=== PATIENT | female | born 1945 | race Caucasian/White ===

== ENCOUNTER 2017-01-31 23:06 | Emergency (ER) | payer BC ==
[~2017-01-31 23:06] MED LIST: CHOL100010 PO; COEN75CA PO; DIGE1CAP10 PO; FLEC50TA20 PO; METO25TA3 PO; MISCCAP80 PO; MULT-506 PO; OMEG7.5C PO
== END 2017-01-31 23:16 | disposition left against medical advice (07) ==
LOC: C.EDB 23:06

== ENCOUNTER → 2017-04-10 | Outpatient (CLI) | payer BC ==
--- NOTE | 2017-04-10 13:49 | DIAGNOSTIC IMAGING REPORT ---
R PELVIS UNILATERAL HIP 1 VIEW CLINICAL HISTORY: 72 years-old Female presenting with RIGHT HIP PAIN. TECHNIQUE: Single frontal view of the pelvis and frog-leg lateral view of the right hip were obtained. COMPARISON: 09/07/2015. FINDINGS: Total right hip arthroplasty as on prior exam. Minimal lucency along the lateral aspect of the proximal femoral stem measures up to 3 mm and may be within the range of normal. No periprosthetic fracture. No malalignment. Bony pelvis intact. Left hip joints normal. IMPRESSION: Total right hip arthroplasty. Minimal lucency along the lateral aspect of the proximal femoral stem component measures up to 3 mm and may be within the range of normal versus loosening. Electronically signed by: Odell Bhakta M.D. 04/10/2017 1:47 PM Dictated Date/Time: 04/10/2017 1:45 PM
== END | disposition home or self-care (01) ==
LOC: C.RDSM 13:37
PROVIDERS: ATTEND Physician Assistant
DX: M16.10 Unilateral primary osteoarthritis, unspecified hip (principal); Z96.641 Presence of right artificial hip joint

== ENCOUNTER 2019-08-23 20:50 | Inpatient (IN) ==
[2019-08-23] MEDS ORDERED: ONDANSETRON INJ 2 MG/ML 2 ML VIAL IV STA (21:45)
[2019-08-23] MEDS ORDERED: SODIUM CHLORIDE 0.9% 1000ML 1,000 ML IV ONE (21:45)
[2019-08-23 22:16] LABS: Basophils # (auto) 0.01 K/uL (0-0.2); Basophils % (auto) 0.2 %; Hematocrit (blood only) 42.1 % (37-47); Immature Granulocytes # (auto) 0.02 K/uL (0.00-0.02); Immature Granulocytes % (auto) 0.3 %; Lymphocytes # (auto) 0.51 K/uL (1.2-3.4); Lymphocytes % (auto) 7.7 %; Mean Corpuscular Hgb Conc 33.3 g/dL (32-36); Mean Corpuscular Volume 90.3 fL (80-100); Mean Platelet Volume 10.2 fL (7.4-10.4); Monocytes # (auto) 0.49 K/uL (0.11-0.59); Monocytes % (auto) 7.4 %; Neutrophils # (auto) 5.58 K/uL (1.4-6.5); Neutrophils % (auto) 84.4 %; Platelet Count 177 K/uL (130-400); RDW Coefficient of Variation 13.4 % (11.5-14.5); RDW Standard Deviation 44.3 fL (36.4-46.3); Red Blood Count 4.66 M/uL (4.2-5.4); White Blood Count 6.61 K/uL (4.8-10.8)
[2019-08-23 22:44] LABS: Alanine Aminotransferase 32 U/L (12-78); Albumin Globulin Ratio 0.8 (0.9-2); Albumin Level 3.1 gm/dl (3.4-5.0); Alkaline Phosphatase 60 U/L (45-117); Aspartate Aminotransferase 40 U/L (15-37); BUN Creatinine Ratio 9.7 (10-20); Bilirubin,Total 0.5 mg/dl (0.2-1); Blood Urea Nitrogen 8 mg/dl (7-18); Calcium 8.3 mg/dl (8.5-10.1); Carbon Dioxide 22 mmol/L (21-32); Chloride 97 mmol/L (98-107); Creatinine Clr Calc Pharmacy 66.6 ml/min; Est GFR (African American) 79.4; Est GFR (Non-African American) 68.5; Globulin 3.7 gm/dl (2.5-4.0); Glucose 119 mg/dl (70-99); Lipase 77 U/L (73-393); Potassium 3.5 mmol/L (3.5-5.1); Sodium 128 mmol/L (136-145); Total Protein 6.8 gm/dl (6.4-8.2); Troponin I < 0.015 ng/ml (0-0.045)
[2019-08-23] MEDS ORDERED: MoRPHine SULFATE 2 MG/ML CARP IV STA (23:00)
[2019-08-23] MEDS ORDERED: IOVERSOL 100ml IV PRN (23:58)
[2019-08-24 00:31] LABS: Appearance Urine Clear (Clear); Bacteria Urine Automated Negative (Negative); Bilirubin Urine Negative (Negative); Blood Urine 1+ (Negative); Cast Urine Automated 0 /lpf (0-5); Color Urine Yellow; Epithelial Cell Urine Auto 20-30 /lpf (0-5); Glucose Urine UA Negative (Negative); Ketones Urine 2+ (Negative); Leukocyte Esterase Urine 1+ (Negative); Nitrite Urine Negative (Negative); Protein Urine 1+ (Negative); Specific Gravity Urine 1.023 (1.000-1.030); Urobilinogen Urine Negative (Negative)
--- NOTE | 2019-08-24 01:10 | History & Physical Report ---
Date of Service August 24, 2019 Assessment & Plan (1) Syncope: 74 yo otherwise healthy F who suffered a syncopal event at home that led to a fall and clavicular fracture and admitted for management. 1) Syncope - CT head: negative for intracranial bleed, old lacunar infarct present. - CT abd/pelv: normal bowel gas pattern, no indication of colitis, old rib fractures, hip prostheses - secondary to hyponatremia? Na 128 - EKG: left axis deviation with incomplete left bundle branch block? 2) Hyponatremia - hypovolemic hyponatremia - gentle rehydration with NS 3) R Clavicular fracture - XR clavicle/CT chest wo Con: R clavicular fracture, fracture of right 3rd and 4th ribs, no pneumothorax - pain control with tylenol, ibuprofen scheduled, morphine 2 mg Q4 PRN - ortho consult for surgical options of fixation - affected shoulder in sling for immobilization 4) Asymptomatic Bacteriuria - UA + for LE, bacteria, WBC, protein - urine culture reflex pending - borderline elevated BP - if symptoms develop consider treatment for UTI/Urosepsis in setting of fever, source and relative hypotension DVT ppx: heparin SQ BID FEN/GI: NPO Code Status: full code Dispo: med/surg with tele (2) Fall: (3) Hyponatremia: (4) Clavicle fracture: History of Present Illness 74-year-old otherwise healthy female admitted for syncopal episode resulting in a fall. She states she was at home sitting on the couch thinking and talking about watching a movie when she got up to go to the kitchen. She does not remember getting up or falling afterwards and woke up when the rubber goods cutter finisher were already there. She states this type of event has happened before when she gets up too fast from a sitting position. She states that a friend of hers was in the house with her and found her on the ground and called EMS. She denies any presyncopal symptoms or any current weakness, dizziness, chest pain, palpitations. She does attest to having fevers at home up to 99 F as well as sweating during the day and having chills and shivering. She attest to a mild cough that is nonproductive. She states she has not been around any sick contacts however the son of the friend that was in her house got tested for COVID today. She denies any symptoms of dysuria, polyuria. Had ~15 episodes of diarrhea on Friday after eating potato salad at a picnic on Friday but no one else at the [facility] had the same symptoms. Denies bloody or tarry bowel movements. Primary Care Provider: Tawana Gordon DO Allergies Allergy/AdvReac Type Severity Reaction Status Date / Time gluten Allergy Unknown Joint Pain Verified 08/23/19 21:51 topical antibiotics Allergy Unknown rash Uncoded 08/23/19 21:51 Home Medications Home Medications Medication Instructions Recorded Confirmed Type metoprolol succinate 25 mg PO DAILY #0 07/20/07 08/23/19 History [place]-3 Fish Oil 2 cap PO DAILY #0 11/30/12 08/23/19 History coenzyme Q10 200 mg PO DAILY #0 11/30/12 08/23/19 History Probiotic 3,000 mmu cells PO DAILY #0 05/15/15 08/23/19 History cholecalciferol (vitamin D3) 1,000 unit PO DAILY #0 tab 05/15/15 08/23/19 History digestive enzymes 1 tab PO DAILY #0 05/15/15 08/23/19 History flecainide 50 mg PO Q12H #0 tab 05/15/15 08/23/19 History multivitamin 1 tab PO DAILY #0 tab 05/15/15 08/23/19 History Glucosamine Chondroitin 2 cap PO DAILY 08/20/18 08/23/19 History ibuprofen 200 mg PO Q6H PRN 08/23/19 08/23/19 History Past Med/Surg History Medical History GERD (gastroesophageal reflux disease) (Acute) Osteoarthritis (Acute) Sinusitis (Acute) chronic SVT (supraventricular tachycardia) (Acute) Surgical History History of cardiac radiofrequency ablation (Acute) History of herniorrhaphy (Acute) right x2 History of tonsillectomy (Acute) History of total hip arthroplasty (Acute) right Social History Preferred Language: Armenian Communication Ability: Effective District Gauger Required: No Beliefs That Will Affect Care: None Current Living Situation: Alone Feels Safe at Home: Yes Smoking Status: Never smoker Second Hand Exposure: No ; Hx Alcohol Use: Yes Alcohol type: wine Hx Substance Use: No Review of Systems Constitutional: + fever and + chills; no body aches and no fatigue Respiratory: + cough; no dyspnea Cardiovascular: no chest pain, no dyspnea and no edema Gastrointestinal: + diarrhea/loose stools; no abdominal pain, no nausea, no vomiting and no constipation Genitourinary: no dysuria Physical Exam Constitutional: cooperative; no acute distress and not ill appearing Neck: normal visual inspection Respiratory: normal respiratory effort and able to speak in complete sentences; no respiratory distress, no labored breathing, no retractions, no cough and no audible wheezes Auscultation: lungs clear to auscultation bilaterally; no crackles, no rales, no rhonchi and no wheezes Cardiovascular: Rate/Rhythm: regular rate and regular rhythm Heart Sounds: normal S1 and normal S2; no gallop, no murmur and no cardiac rub Vessels: posterior tibial pulses present Extremities: no pedal edema and no edema Gastrointestinal (Abdomen): Inspection/Auscultation: abdomen normal to inspection and normal bowel sounds; abdomen not distended Percussion/Palpation: abdomen soft; abdomen nontender, no guarding, abdomen not rigid and no abdominal mass Results & Data Results & Data ([facility]) Vital Signs (Past 12 Hours) Vital Signs Temp Pulse Pulse Resp BP BP Pulse Ox 08/24/19 00:22 37.9 C H 67 18 105/57 L 94 08/23/19 23:27 70 18 132/72 93 08/23/19 21:03 38 C H 81 15 128/70 95 Laboratory Results WBC 6.61 K/uL (4.8-10.8) 08/23/19 22:05 RBC 4.66 M/uL (4.2-5.4) 08/23/19 22:05 Hgb 14.0 g/dL (12.0-16.0) 08/23/19 22:05 Hct 42.1 % (37-47) 08/23/19 22:05 MCV 90.3 fL (80-100) 08/23/19 22:05 MCH 30.0 pg (25-34) 08/23/19 22:05 MCHC 33.3 g/dL (32-36) 08/23/19 22:05 RDW Std Deviation 44.3 fL (36.4-46.3) 08/23/19 22:05 RDW Coeff of Katarina 13.4 % (11.5-14.5) 08/23/19 22:05 Plt Count 177 K/uL (130-400) 08/23/19 22:05 MPV 10.2 fL (7.4-10.4) 08/23/19 22:05 Immature Gran % (Auto) 0.3 % 08/23/19 22:05 Neut % (Auto) 84.4 % 08/23/19 22:05 Lymph % (Auto) 7.7 % 08/23/19 22:05 [place] % (Auto) 7.4 % 08/23/19 22:05 Eos % (Auto) 0.0 % 08/23/19 22:05 Baso % (Auto) 0.2 % 08/23/19 22:05 Neut # (Auto) 5.58 K/uL (1.4-6.5) 08/23/19 22:05 Lymph # (Auto) 0.51 K/uL (1.2-3.4) L 08/23/19 22:05 [place] # (Auto) 0.49 K/uL (0.11-0.59) 08/23/19 22:05 Eos # (Auto) 0.00 K/uL (0-0.5) 08/23/19 22:05 Baso # (Auto) 0.01 K/uL (0-0.2) 08/23/19 22:05 Immature Gran # (Auto) 0.02 K/uL (0.00-0.02) 08/23/19 22:05 Sodium 128 mmol/L (136-145) L 08/23/19 22:05 Potassium 3.5 mmol/L (3.5-5.1) 08/23/19 22:05 Chloride 97 mmol/L (98-107) L 08/23/19 22:05 Carbon Dioxide 22 mmol/L (21-32) 08/23/19 22:05 Anion Gap 9.0 (3-11) 08/23/19 22:05 BUN 8 mg/dl (7-18) 08/23/19 22:05 Creatinine 0.83 mg/dl (0.6-1.2) 08/23/19 22:05 Est Cr Clr Drug Dosing 66.6 ml/min 08/23/19 22:05 Est GFR ( Amer) 79.4 08/23/19 22:05 Est GFR (Non-Af Amer) 68.5 08/23/19 22:05 BUN/Creatinine Ratio 9.7 (10-20) L 08/23/19 22:05 Glucose 119 mg/dl (70-99) H 08/23/19 22:05 Calcium 8.3 mg/dl (8.5-10.1) L 08/23/19 22:05 Total Bilirubin 0.5 mg/dl (0.2-1) 08/23/19 22:05 AST 40 U/L (15-37) H 08/23/19 22:05 ALT 32 U/L (12-78) 08/23/19 22:05 Alkaline Phosphatase 60 U/L (45-117) 08/23/19 22:05 Troponin I < 0.015 ng/ml (0-0.045) 08/23/19 22:05 Total Protein 6.8 gm/dl (6.4-8.2) 08/23/19 22:05 Albumin 3.1 gm/dl (3.4-5.0) L 08/23/19 22:05 Globulin 3.7 gm/dl (2.5-4.0) 08/23/19 22:05 Albumin/Globulin Ratio 0.8 (0.9-2) L 08/23/19 22:05 Lipase 77 U/L (73-393) 08/23/19 22:05 Specimen Hemolysis 08/23/19 22:05 Urine Color Yellow 08/24/19 00:15 Urine Appearance Clear (Clear) 08/24/19 00:15 Urine pH 6.0 (4.5-7.5) 08/24/19 00:15 Ur Specific [place] 1.023 (1.000-1.030) 08/24/19 00:15 Urine Protein 1+ (Negative) H 08/24/19 00:15 Urine Glucose (UA) Negative (Negative) 08/24/19 00:15 Urine Ketones 2+ (Negative) H 08/24/19 00:15 Urine Blood 1+ (Negative) H 08/24/19 00:15 Urine Nitrite Negative (Negative) 08/24/19 00:15 Urine Bilirubin Negative (Negative) 08/24/19 00:15 Urine Urobilinogen Negative (Negative) 08/24/19 00:15 Ur Leukocyte Esterase 1+ (Negative) H 08/24/19 00:15 Urine WBC (Auto) 10-30 /hpf (0-5) H 08/24/19 00:15 Urine RBC (Auto) 5-10 /hpf (0-4) H 08/24/19 00:15 U Hyaline Cast (Auto) 0 /lpf (0-5) 08/24/19 00:15 U Epithel Cells (Auto) 20-30 /lpf (0-5) H 08/24/19 00:15 Urine Bacteria (Auto) Negative (Negative) 08/24/19 00:15 Supervising Physician Co-Signing Physician Notes Attending addendum: I have physically seen this patient, have supervised the medical residents activities, and agree with the H&P unless as otherwise noted. Assessment and Plan: Syncope- The patient will be admitted to telemetry for serial cardiac enzymes, serial EKG's, cardiac rhythm monitoring and a 2-D echocardiogram with Dopplers. CT head negative for intracranial bleed, old lacunar infarct left basal ganglia Differential including deconditioning, hyponatremia with hypovolemia, UTI. Right clavicular fracture/fracture of right third and fourth ribs- Consult orthopedics Shoulder immobilizer Pain control with acetaminophen 600 mg p.o. every 6 hours as needed outpatient temperature. Morphine 2 mg IV every 4 hours as needed severe pain Hypovolemic hyponatremia- Rehydration with NSS. Repeat laboratories in a.m. Remainder of orders and notations as noted. Resident Activity Tracking Resident Involvement: Resident Care Provided Care Provided: Adult [facility]
[2019-08-24] MEDS ORDERED: IBUPROFEN 200 MG TAB PO PRN (04:29)
[2019-08-24] MEDS ORDERED: MoRPHine SULFATE 2 MG/ML CARP IV PRN (04:29)
[2019-08-24] MEDS ORDERED: MAGNESIUM HYDROXIDE SUSP 30 ML UDC PO PRN (04:29)
[2019-08-24] MEDS ORDERED: ALUMINUM/MAGNESIUM SUSP 30 ML UDC PO PRN (04:29)
[2019-08-24] MEDS ORDERED: SODIUM CHLORIDE 0.9% 1000ML 1,000 ML IV SCH (04:29)
[2019-08-24] MEDS ORDERED: POLYETHYLENE (MIRALAX) 17 GM PACK PO PRN (04:29)
--- NOTE | 2019-08-24 06:59 | CT Scan Report ---
CT OF THE CHEST WITHOUT IV CONTRAST CLINICAL HISTORY: pneumothorax, clavicle fracture COMPARISON STUDY: Chest radiograph August 23, 2019 at 9:[address] DOSE: 340.88 mGy.cm TECHNIQUE: Axial images of the chest were obtained without IV contrast. Images were reviewed in the axial, sagittal, and coronal planes. IV contrast was not administered for this examination. Automat ed exposure control was utilized for the study. A dose lowering technique was utilized adhering to t he principles of ALARA. FINDINGS: No mediastinal hematoma is noted. There is no pericardial effusion. No pneumothorax or ple ural effusion is noted. Subpleural opacities reflect atelectasis. Central airways are patent. No acut e thoracic spine fracture is noted. There are several Schmorl's nodes within the thoracic spine. Ther e is no thoracic lymphadenopathy. Note is made of an acute comminuted mildly displaced midshaft fract ure of the right clavicle. There are are angulated nondisplaced fractures of the anterior right third and fourth ribs which are likely acute. There are multiple old left rib fractures. IMPRESSION: 1. Acute comminuted moderately displaced right clavicular fracture. 2. Angulated nondisplaced anterior right third and fourth rib fractures, likely acute. No pneumothora x. 3. No mediastinal hematoma. ACT 112: Negative or not required by law. Electronically signed by: Joel Hernandez M.D. 08/24/2019 6:58 AM
--- NOTE | 2019-08-24 07:07 | CT Scan Report ---
CT head/brain wo con CT DOSE: 614.27 mGy.cm HISTORY: Mental status change syncope TECHNIQUE: Multiaxial CT images of the head were performed without the use of intravenous contrast. A dose lowering technique was utilized adhering to the principles of ALARA. Comparison: None. Findings: The paranasal sinuses and mastoid air cells are clear. The calvarium and skull base are int act. The ventricles and sulci are within normal limits. There is no mass, hematoma, midline shift, or acute infarct. Impression: No acute intracranial abnormality. Age-related change. ACT 112: Negative or not required by law. The above report was generated using voice recognition software. It may contain grammatical, syntax or spelling errors. Electronically signed by: Kev Diggs M.D. 08/24/2019 7:05 AM
--- NOTE | 2019-08-24 07:21 | CT Scan Report ---
CT OF THE ABDOMEN AND PELVIS WITH CONTRAST CLINICAL HISTORY: gi sxs, fever, syncope COMPARISON STUDY: None. TECHNIQUE: Following IV administration of 90 mL of Optiray-320, axial images of the abdomen and pelvi s were obtained from the lung bases to the proximal femurs. Images were reviewed in the axial, sagitt al, and coronal planes. IV contrast was administered without complication. Automated exposure contro l was utilized for the study. A dose lowering technique was utilized adhering to the principles of A WONG. CT DOSE: 824.03 mGy.cm FINDINGS: No pneumatosis, free air or portal venous gas is present. A subcentimeter lateral segment h epatic cyst is noted. There is no biliary or pancreatic ductal dilatation. No peripancreatic or peric holecystic infiltration is present. There is no hydronephrosis. The spleen, adrenal glands, kidneys a nd pancreas are unremarkable. There is no evidence for a bowel obstruction. Colonic wall thickening i s likely due to underdistention. The appendix is normal. There is no lymphadenopathy. There is no asc ites. Right hip arthroplasty is noted. Old bilateral lower rib fractures are noted. IMPRESSION: 1. No acute findings within the abdomen or pelvis. 2. Normal appendix. No bowel obstruction. Mild colonic wall thickening which is likely due to underdi stention. ACT 112: Negative or not required by law. Electronically signed by: Joel Hernandez M.D. 08/24/2019 7:19 AM
--- NOTE | 2019-08-24 07:21 | XRay Report ---
XR clavicle 2 view RT CLINICAL HISTORY: fall, right clavicle pain trauma. Pain. COMPARISON: None. DISCUSSION: Displaced comminuted fracture midshaft right clavicle. Moderate degenerative change right acromioclavicular joint. No evidence for dislocation. There is no evidence for soft tissue swelling. IMPRESSION: Displaced fracture midshaft right clavicle. ACT 112: Negative or not required by law. The above report was generated using voice recognition software. It may contain grammatical, syntax or spelling errors. Electronically signed by: Kev Diggs M.D. 08/24/2019 7:20 AM
--- NOTE | 2019-08-24 07:29 | XRay Report ---
XR chest 1V portable CLINICAL HISTORY: syncope dyspnea COMPARISON STUDY: 11/30/2012 FINDINGS: The bones soft tissues and hemidiaphragms are normal. The cardiomediastinal silhouette is n ormal. The lungs are clear. The pulmonary vasculature is normal. IMPRESSION: Negative chest. ACT 112: Negative or not required by law. The above report was generated using voice recognition software. It may contain grammatical, syntax or spelling errors. Electronically signed by: Kev Diggs M.D. 08/24/2019 7:28 AM
--- NOTE | 2019-08-24 08:25 | Electrocardiogram Report ---
Test Reason : Blood Pressure : / mmHG Vent. Rate : 072 BPM Atrial Rate : 072 BPM P-R Int : 182 ms QRS Dur : 114 ms QT Int : 452 ms P-R-T Axes : 061 -31 051 degrees QTc Int : 494 ms Poor data quality, interpretation may be adversely affected Normal sinus rhythm Left axis deviation Incomplete left bundle block Nonspecific ST and T wave abnormality Abnormal ECG When compared with ECG of 11-DEC-2014 05:45, Incomplete left bundle block is now Present T wave inversion now evident in Anterior leads Confirmed by Jourdan Emmanuel ([id number]) on 08/24/2019 8:25:12 AM Referred By: REFERRED SELF Confirmed By:Jourdan Emmanuel
[2019-08-24] MEDS: ACETAMINOPHEN 325 MG TAB PO SCH ×5 (08:51→21:25)
[2019-08-24] MEDS: FLECAINIDE ACETATE 100 MG TABLET PO SCH ×2 (09:00→21:24)
[2019-08-24] MEDS ORDERED: OMEGA DHA EPA FISH OIL PO SCH (09:00)
[2019-08-24] MEDS ORDERED: NON-FORMULARY MEDICATION (Glucos Sul 2kcl-Msm-Chond-C-Mn [Glucosamine Chondroitin] 2 CAP) PO SCH (09:00)
[2019-08-24] MEDS: METOPROLOL SUCC 25MG EXT REL TAB PO SCH (09:00)
[2019-08-24] MEDS ORDERED: NON-FORMULARY MEDICATION (Coenzyme Q10 200 MG) PO SCH (09:00)
[2019-08-24] MEDS: MULTIVITAMIN TAB PO SCH (09:00)
[2019-08-24] MEDS ORDERED: HEPARIN SOD 5,000 UNIT/0.5 ML VIAL SQ SCH (09:00)
[2019-08-24] MEDS ORDERED: NON-FORMULARY MEDICATION (Lactobacillus Combination No.4 [Probiotic] 3,000 mmu cells) PO SCH (09:00)
[2019-08-24] MEDS: CHOLECALCIFEROL 1,000 UNITS 25 MCG TAB PO SCH (09:01)
[2019-08-24] MEDS: HEPARIN SOD 5,000 UNIT/0.5 ML VIAL SQ SCH ×2 (09:05→21:22)
--- NOTE | 2019-08-24 10:41 | Hospitalist Progress Note ---
Date of Service August 24, 2019 Assessment & Plan (1) Syncope: 74 yo otherwise healthy F who suffered a syncopal event at home that led to a fall and a traumatic clavicular fracture. 1) Syncope - Etiology: Hypotension > Orthostatic > Cardiac - hx of volume depletion (diarrhea) and low blood pressure on arrival make hypotension most likely etiology. Orthostatic is possible given positional change preceding event. Cardiac possible as patient has hx of SVT, although EKG on arrival showing NSR - orthostatic vitals ordered - continue IVF for volume replacement - monitoring on Tele 2) Hyponatremia - sodium level 128 on admission - serum osms 256 (low) - hypotonic hyponatremia - patient clinically dry; IVF as above - trend BMP 3) R Clavicular fracture - secondary to traumatic fall - XR clavicle/CT chest wo Con: R displaced clavicular fracture - pain control with tylenol, ibuprofen scheduled, morphine 2 mg Q4 PRN - affected shoulder in sling for immobilization - ortho consulted, recommend surgical fixation after acute medical illness resolved 4) Asymptomatic Bacteriuria - UA + for LE, bacteria, WBC, protein - WBC normal - urine culture reflex pending - hold off on antibiotics at this time 5) New onset Incomplete LBBB - appreciated on admission EKG with new T wave inversions - trops x 2 undetectable 6) History of SVT - currently on flecainide 100mg, daily - follows with Dr. Rojas at [facility] 7) Diarrhea - patient reports hx of diarrhea, fever/chills, and malaise that began after a picnic on Sunday 08/20. No other guests at picnic got sick - likely cause of volume loss - seems to be resolved at this time - WBC normal - Cdiff ordered - blood cultures pending DVT ppx: heparin SQ BID FEN/GI: heart healthy Code Status: full code Dispo: med/surg with tele (2) Fall: (3) Hyponatremia: (4) Clavicle fracture: Admission and Anticipated Discharge Date Admission Date: August 24, 2019 Supervising Physician Co-Signing Physician Notes Resident Physician Supervision Note: I independently interviewed and examined the patient and verified the mes[place] history and physical, reviewed labs and image studies, discussed the case with the resident Dr. Dubon and agree with the findings and care plan. Subjective Feeling fine. Upon questioning, reports sensation of dizziness prior to syncopal episode, but no palpitations or graying of vision. Review of Systems Cardiovascular: no chest pain and no dyspnea Gastrointestinal: + diarrhea/loose stools; no abdominal pain, no nausea, no vomiting and no constipation Genitourinary: no dysuria Physical Exam Constitutional: WD/WN, vitals as above cooperative Eyes: + anicteric sclerae ENMT: external ear and nose normal, oropharynx normal Neck: normal visual inspection and trachea midline Respiratory: normal respiratory effort, lungs clear to auscultation Cardiovascular: Rate/Rhythm: regular rate and regular rhythm Heart Sounds: normal S1, normal S2 and + murmur (systolic ejection) Extremities: no pedal edema Gastrointestinal (Abdomen): normal bowel sounds, soft, nontender, no hepatosplenomegaly Musculoskeletal: + point tenderness on R clavicle with crepitus Skin: no rashes, warm and dry Psychiatric: A+Ox3, euthymic affect Results & Data Results & Data ([facility]) Vital Signs (Past 12 Hours) Vital Signs Temp Pulse Pulse Resp BP BP Pulse Ox 08/24/19 07:00 71 20 102/50 L 93 08/24/19 06:50 69 21 93 08/24/19 06:40 69 21 92 08/24/19 06:31 75 22 94 08/24/19 06:20 71 20 08/24/19 06:10 70 22 08/24/19 06:01 73 16 08/24/19 06:00 72 20 112/56 L 08/24/19 05:50 72 21 08/24/19 05:49 72 27 H 110/46 L 08/24/19 05:44 74 21 08/24/19 05:31 72 19 106/51 L 08/24/19 05:30 73 21 08/24/19 05:20 74 18 08/24/19 05:01 73 20 111/50 L 08/24/19 04:31 74 19 111/57 L 08/24/19 04:30 71 20 08/24/19 04:01 70 20 119/61 08/24/19 04:00 69 21 08/24/19 03:31 70 20 112/63 90 08/24/19 03:30 68 20 91 08/24/19 03:01 66 19 104/58 L 93 08/24/19 03:00 67 20 93 08/24/19 02:00 66 18 100/51 L 95 08/24/19 00:22 37.9 C H 67 18 105/57 L 94 08/23/19 23:27 70 18 132/72 93 Resident Activity Tracking Resident Involvement: Resident Care Provided Care Provided: Adult Hospital Medicine
--- NOTE | 2019-08-24 12:47 | Orthopedic Consultation ---
Date of Consultation August 24, 2019 Assessment & Plan (1) Fracture, clavicle closed, shaft: Right 100% displaced and foreshortened middle one third clavicle fracture. Patient would benefit from surgical fixation of clavicle fracture when medically stable, nonurgent, nonweightbearing right upper extremity, sling immobilization, ice to right clavicle, will discuss with upper extremity specialist at [facility] in regards to timing. Thank you for the consultation History of Present Illness Reason for Consultation: Right clavicle fracture Attending Physician: Jennifer Bailey MD History of Present Illness The patient is a 74-year-old female who presented to [facility] secondary to a syncopal episode episode and fall earlier today. Patient does not recall falling. X-rays taken in the emergency department demonstrated a displaced right clavicle fracture. Patient is being admitted for further inpatient evaluation and treatment secondary to syncopal episode. Patient denies any numbness or tingling to right upper extremity, denies any associated injuries. Allergies Allergy/AdvReac Type Severity Reaction Status Date / Time gluten Allergy Unknown Joint Pain Verified 08/23/19 21:51 topical antibiotics Allergy Unknown rash Uncoded 08/23/19 21:51 Home Medications Home Medications Medication Instructions Recorded Confirmed Type metoprolol succinate 25 mg PO DAILY #0 07/20/07 08/23/19 History [place]-3 Fish Oil 2 cap PO DAILY #0 11/30/12 08/23/19 History coenzyme Q10 200 mg PO DAILY #0 11/30/12 08/23/19 History Probiotic 3,000 mmu cells PO DAILY #0 05/15/15 08/23/19 History cholecalciferol (vitamin D3) 1,000 unit PO DAILY #0 tab 05/15/15 08/23/19 History digestive enzymes 1 tab PO DAILY #0 05/15/15 08/23/19 History flecainide 50 mg PO Q12H #0 tab 05/15/15 08/23/19 History multivitamin 1 tab PO DAILY #0 tab 05/15/15 08/23/19 History Glucosamine Chondroitin 2 cap PO DAILY 08/20/18 08/23/19 History ibuprofen 200 mg PO Q6H PRN 08/23/19 08/23/19 History Patient History Medical History GERD (gastroesophageal reflux disease) (Acute) Osteoarthritis (Acute) Sinusitis (Acute) chronic SVT (supraventricular tachycardia) (Acute) Surgical History History of cardiac radiofrequency ablation (Acute) History of herniorrhaphy (Acute) right x2 History of tonsillectomy (Acute) History of total hip arthroplasty (Acute) right Social History Preferred Language: Telugu Communication Ability: Effective Cuff Maker Required: No Beliefs That Will Affect Care: None Current Living Situation: Alone Feels Safe at Home: Yes Smoking Status: Never smoker Second Hand Exposure: No ; Hx Alcohol Use: Yes Alcohol type: wine Hx Substance Use: No Review of Systems Review of Systems: All systems reviewed & are unremarkable except as noted in HPI & below Constitutional: as per Subjective / HPI Physical Exam Physical Exam: Right upper extremity physical exam, neurovascular sensory in tact, +2 radial pulse, compartment soft nontender, skin overlying right clavicle clean dry and intact without tenting. Constitutional: WD/WN, vitals as above Results & Data ([facility]) Vital Signs (Past 12 Hours) Vital Signs Temp Pulse Pulse Resp BP BP Pulse Ox 08/24/19 08:00 36.6 C 66 18 103/51 L 98 08/24/19 07:00 71 20 102/50 L 93 08/24/19 06:50 69 21 93 08/24/19 06:40 69 21 92 08/24/19 06:31 75 22 94 08/24/19 06:20 71 20 08/24/19 06:10 70 22 08/24/19 06:01 73 16 08/24/19 06:00 72 20 112/56 L 08/24/19 05:50 72 21 08/24/19 05:49 72 27 H 110/46 L 08/24/19 05:44 74 21 08/24/19 05:31 72 19 106/51 L 08/24/19 05:30 73 21 08/24/19 05:20 74 18 08/24/19 05:01 73 20 111/50 L 08/24/19 04:31 74 19 111/57 L 08/24/19 04:30 71 20 08/24/19 04:01 70 20 119/61 08/24/19 04:00 69 21 08/24/19 03:31 70 20 112/63 90 08/24/19 03:30 68 20 91 08/24/19 03:01 66 19 104/58 L 93 08/24/19 03:00 67 20 93 08/24/19 02:00 66 18 100/51 L 95 Diagnostic Findings XR clavicle 2 view RT CLINICAL HISTORY: fall, right clavicle pain trauma. Pain. COMPARISON: None. DISCUSSION: Displaced comminuted fracture midshaft right clavicle. Moderate degenerative change right acromioclavicular joint. No evidence for dislocation. There is no evidence for soft tissue swelling. IMPRESSION: Displaced fracture midshaft right clavicle.
[2019-08-24] MEDS: SODIUM CHLORIDE 0.9% 1000ML 1,000 ML IV SCH (16:41)
--- NOTE | 2019-08-24 19:11 | Billing Data ---
Date of Service August 24, 2019 Coding Level of Care Code 39495 Initial Inpt Care Lvl 3
[2019-08-25] MEDS: SODIUM CHLORIDE 0.9% 1000ML 1,000 ML IV SCH (00:42)
[2019-08-25] MEDS: ACETAMINOPHEN 325 MG TAB PO SCH ×4 (00:44→12:07)
[2019-08-25 06:39] LABS: BUN Creatinine Ratio 17.1 (10-20); Calcium 8.3 mg/dl (8.5-10.1); Est GFR (African American) 104.4; Potassium 3.2 mmol/L (3.5-5.1)
[2019-08-25] MEDS: METOPROLOL SUCC 25MG EXT REL TAB PO SCH (09:22)
[2019-08-25] MEDS: MULTIVITAMIN TAB PO SCH (09:22)
[2019-08-25] MEDS: CHOLECALCIFEROL 1,000 UNITS 25 MCG TAB PO SCH (09:22)
[2019-08-25] MEDS: HEPARIN SOD 5,000 UNIT/0.5 ML VIAL SQ SCH (09:22)
[2019-08-25] MEDS: FLECAINIDE ACETATE 100 MG TABLET PO SCH (09:23)
--- NOTE | 2019-08-25 10:50 | Discharge Summary ---
Date of Service August 25, 2019 Admission HPI Per Admitting Provider 74-year-old otherwise healthy female admitted for syncopal episode resulting in a fall. She states she was at home sitting on the couch thinking and talking about watching a movie when she got up to go to the kitchen. She does not remember getting up or falling afterwards and woke up when the setter helper were already there. She states this type of event has happened before when she gets up too fast from a sitting position. She states that a friend of hers was in the house with her and found her on the ground and called EMS. She denies any presyncopal symptoms or any current weakness, dizziness, chest pain, palpitations. She does attest to having fevers at home up to 99 F as well as sweating during the day and having chills and shivering. She attest to a mild cough that is nonproductive. She states she has not been around any sick contacts however the son of the friend that was in her house got tested for COVID today. She denies any symptoms of dysuria, polyuria. Had ~15 episodes of diarrhea on Friday after eating potato salad at a picnic on Friday but no one else at the picnic had the same symptoms. Denies bloody or tarry bowel movements. Primary Care Provider: Tawana Gordon, DO Admission Exam Per Admitting Provider Constitutional: cooperative; no acute distress and not ill appearing Neck: normal visual inspection Respiratory: normal respiratory effort and able to speak in complete sentences; no respiratory distress, no labored breathing, no retractions, no cough and no audible wheezes Auscultation: lungs clear to auscultation bilaterally; no crackles, no rales, no rhonchi and no wheezes Cardiovascular: Rate/Rhythm: regular rate and regular rhythm Heart Sounds: normal S1 and normal S2; no gallop, no murmur and no cardiac rub Vessels: posterior tibial pulses present Extremities: no pedal edema and no edema Gastrointestinal (Abdomen): Inspection/Auscultation: abdomen normal to inspection and normal bowel sounds; abdomen not distended Percussion/Palpation: abdomen soft; abdomen nontender, no guarding, abdomen not rigid and no abdominal mass Principal Diagnosis Syncopal Episode Discharge Exam Constitutional WD/WN, vitals as above cooperative Eyes + anicteric sclerae ENMT external ear and nose normal, oropharynx normal Neck normal visual inspection and trachea midline Respiratory normal respiratory effort, lungs clear to auscultation Cardiovascular Rate/Rhythm: regular rate and regular rhythm Heart Sounds: normal S1, normal S2 and + murmur (systolic ejection) Extremities: no pedal edema Gastrointestinal (Abdomen) normal bowel sounds, soft, nontender, no hepatosplenomegaly Musculoskeletal +tenderness of R clavicle with obvious step-off Skin no rashes, warm and dry Psychiatric A+Ox3, euthymic affect Discharge Data Allergies Allergy/AdvReac Type Severity Reaction Status Date / Time gluten Allergy Unknown Joint Pain Verified 08/23/19 21:51 topical antibiotics Allergy Unknown rash Uncoded 08/23/19 21:51 Consultations 08/24/19 00:41 ED Decision to Admit Stat 08/24/19 04:29 Consult Orthopedic Surgery Routine Ordered Studies 08/23/19 21:44 CT abd pelvis IV con only Urgent CT head/brain wo con Urgent 08/24/19 01:09 CT chest wo con Urgent Hospital Course (1) Syncope: 74 yo otherwise healthy F who suffered a syncopal event at home that led to a fall and a traumatic clavicular fracture. 1) Syncope Etiology of patient's syncopal episode felt to be Hypotension > Orthostatic > Cardiac. Patient reported history of volume loss (she had > 15 episodes of diarrhea in the days preceding admission). Patient was hypotensive on admission, further supporting this etiology. She was able to recall only a mild sensation of dizziness as prodrome. Patient does have history of SVT, thus a cardiac etiology is not entirely out of the question, although her EKG on arrival showed NSR. Patient was treated with IV fluids and clinically improved. Outpatient items to do: can consider cardiac monitoring, although syncopal episode strongly felt to be hypotensive in nature. 2) Diarrhea Patient reports hx of diarrhea, fever/chills, and malaise that began after a picnic on Sunday 08/20. No other guests at [facility] got sick. Likely cause of volume loss. WBC normal. Stool culture without growth by the time of discharge. Cdiff canceled as diarrhea resolved while in hospital. [place] to represent a viral gastroenteritis. 3) R Clavicular fracture Secondary to traumatic fall. XR clavicle/CT chest wo Con: R displaced clavicular fracture. Orthopedics was consulted and recommended scheduling outpatient visit to plan a surgical fixation. Patient was provided with a should sling for immobilization and directed to wear it until she see ortho in follow up. 4) Asymptomatic Bacteriuria - UA + for LE, bacteria, WBC, protein on admission. WBC normal. Urine culture showing no growth by the time of discharge. No antibiotics indicated. 5) New onset Incomplete LBBB Appreciated on admission EKG with new T wave inversions. Troponin x 2 were ordered with concerns for new onset ischemia, although both were undetectable. Patient denied any chest pain or SOB. 6) History of SVT Currently on flecainide 100mg, daily. Follows with Dr. Rojas at [facility] 7)Hypotonic Hyponatremia Sodium level 128 on admission, improved to 135 by day of discharge with IV fluids. Patient was hypovolemic on exam, likely secondary to dehydration. (2) Fall: (3) Hyponatremia: (4) Clavicle fracture: Total Time Total Time Spent Total Time Spent (In Minutes): see attending attestation Discharge Plan Discharge Items Patient Disposition: Home - Self-Care Reason For Visit: SYNCOPE, CLAVICLE FX Discharge Diagnosis: Snycope Activity: Per Instructions section Non-emergency contact: Primary Care Provider Call non-emergency contact if: your pain is not controlled Follow-up/Referrals: Tawana Gordon DO [Primary Care Provider] - Odell Pandey MD [Surgeon] - 08/30/19 8:20 am (A follow up appt. has been made with Dr. Pandey at [facility] on Friday, August 29 at 8:20am.) Diet: Heart Healthy Addtl Attending Provider Instructions: You were hospitalized at [facility] for a syncopal episode (or a transient loss of consciousness) which caused you to fall on your kitchen floor. You broke your right clavicle or collarbone when you fell. The bone was displaced on xray, and orthopedics were consulted. They would like you to have the bone surgically fixed, and advised you to schedule the surgery after you get discharged from the hospital. You were evaluated by Dr. Dickinson from [facility]. We recommend you keep your right arm in a sling to prevent further displacement of your collar bone until you have your surgery. You may take over the counter pain medications like Tylenol and Ibuprofen for pain. As for the cause of your syncope, the most likely explanation is that you were volume depleted (or dehydrated) after having a gastrointestinal viral illness. You reported many episodes of diarrhea in the days preceding your admission, which causes a lot of water loss through your stool. We treated you with IV fluids. We recommend continuing good hydration, at least 60 fluid ounces of water per day, and more if you are working outdoors in the sun. Since the episode happened when you went from a sitting to a standing position, we recommend you stand up slowly in the future, and pause a minute before walking. You may want to hold onto a railing/table, etc before walking. We ordered a culture of your stool to assess whether there was bacterial pathogens within it. However, there was no bacterial growth in the stool prior to your discharge. You will be contacted over the phone if a bacteria ends up growing in your stool culture, which may warrant treatment with an antibiotic. This is unlikely given that your diarrhea resolved while in the hospital. Pending Studies at Discharge: Yes (urine and stool cultures) Stand-Alone Forms: [facility], Smoking Cessation Medications and DC Order Prescriptions: Continued metoprolol succinate 25 mg Tablet Extended Release 24 Hr 25 mg PO DAILY Qty: 0 RF: 0 coenzyme Q10 200 mg Capsule 200 mg PO DAILY Qty: 0 RF: [address] Fish Oil 300-1,000 mg Capsule 2 cap PO DAILY Qty: 0 RF: 0 multivitamin Tablet 1 tab PO DAILY Qty: 0 RF: 0 digestive enzymes Tablet 1 tab PO DAILY Qty: 0 RF: 0 flecainide 50 mg Tablet 50 mg PO Q12H Qty: 0 RF: 0 cholecalciferol (vitamin D3) 1,000 unit Tablet 1,000 unit PO DAILY Qty: 0 RF: 0 Probiotic 3 billion cell Capsule 3,000 mmu cells PO DAILY Qty: 0 RF: 0 Glucosamine Chondroitin 550-30-1 mg Capsule 2 cap PO DAILY RF: 0 ibuprofen 200 mg Tablet 200 mg PO Q6H PRN (Reason: Pain) RF: 0 Discharge Orders: Discharge Order (Routine); Ordered 08/25/19 Ordered By: America Dubon Admission Data Admit Date/Time: 08/24/19 02:48 Attending Provider: Jennifer Bailey Admit Provider: Marcy Murcia Primary Care Provider: Tawana Gordon Other Providers: Matt Benites ; Hipolito Ybarra Other Interventions: Discharge Summary Assessment (RN) Last Done: 08/25/19 11:45 DC Date/Time DO NOT enter until pt leaves facility: 08/25/19 16:07 Supervising Physician Co-Signing Physician Notes Resident Physician Supervision Note: I independently interviewed and examined the patient and verified the [place] hist ory and physical, reviewed labs and image studies, discussed the case with the resident Dr. Dubon and agree with the findings and care plan. Resident Activity Tracking Resident Involvement: Resident Care Provided Care Provided: Adult Hospital Medicine
--- NOTE | 2019-08-28 00:52 | Emergency Department Note ---
History of Present Illness General Chief complaint: Syncope Stated complaint: SYNCOPE Time Seen by Provider: 08/23/19 21:31 Source: patient and friends Mode of arrival: EMS Limitations: no limitations History of Present Illness Maximum Pain Intensity: 9 This patient is a 74-year-old female who presents to the emergency department for evaluation of a syncopal episode. Patient reports that she has been having some GI issues for the past few days. She reports that she has been having diarrhea, nausea, decreased appetite and fever/chills for the past 3 days. She has not vomited. She has not had much abdominal pain. She states that she was told she passed out tonight but does not remember this episode. She does report pain in her right shoulder. Patient denies any history of GI problems. She reports a history of SVT. She denies noticing any blood in her stools. She does not remember feeling lightheaded or dizzy prior to the syncopal episode. She denies any chest pain or shortness of breath. Additional history was obtained from the patient's friend, Erasmo. He was present for the syncopal episode. He reports that the patient has been fatigued and sleeping a lot over the past few days, which is unusual for her. He reports that they were watching a movie and she stood up to go to the fridge when he heard a thud and found her passed out. He reports that she was "out" for about 5 minutes, then when she came to she was slurring her speech. He states that she was slurring her speech and confused for an additional 15 minutes, then seemed to return to normal. Home Medications Home Medications Medication Instructions Recorded Confirmed Type metoprolol succinate 25 mg PO DAILY #0 07/20/07 08/23/19 History [place]-3 Fish Oil 2 cap PO DAILY #0 11/30/12 08/23/19 History coenzyme Q10 200 mg PO DAILY #0 11/30/12 08/23/19 History Probiotic 3,000 mmu cells PO DAILY #0 05/15/15 08/23/19 History cholecalciferol (vitamin D3) 1,000 unit PO DAILY #0 tab 05/15/15 08/23/19 History digestive enzymes 1 tab PO DAILY #0 05/15/15 08/23/19 History flecainide 50 mg PO Q12H #0 tab 05/15/15 08/23/19 History multivitamin 1 tab PO DAILY #0 tab 05/15/15 08/23/19 History Glucosamine Chondroitin 2 cap PO DAILY 08/20/18 08/23/19 History ibuprofen 200 mg PO Q6H PRN 08/23/19 08/23/19 History Allergies Allergy/AdvReac Type Severity Reaction Status Date / Time gluten Allergy Unknown Joint Pain Verified 08/23/19 21:51 topical antibiotics Allergy Unknown rash Uncoded 08/23/19 21:51 Past Med/Surg History Medical History GERD (gastroesophageal reflux disease) (Acute) Osteoarthritis (Acute) Sinusitis (Acute) chronic SVT (supraventricular tachycardia) (Acute) Surgical History History of cardiac radiofrequency ablation (Acute) History of herniorrhaphy (Acute) right x2 History of tonsillectomy (Acute) History of total hip arthroplasty (Acute) right Social History Preferred Language: Malagasy Communication Ability: Effective Gas Or Water Meter Installer Required: No Beliefs That Will Affect Care: None Current Living Situation: Alone Feels Safe at Home: Yes Smoking Status: Never smoker Second Hand Exposure: No ; Hx Alcohol Use: Yes Alcohol type: wine Hx Substance Use: No Review of Systems A total of 10 systems reviewed and were otherwise negative Physical Exam VITALS: Vitals are noted on the nurse's note and reviewed by myself. . GENERAL: This is a 74-year-old female, in no acute distress, well-developed well-nourished. SKIN: The skin was without rashes. HEAD: Normocephalic atraumatic. EARS: External auditory canals clear, tympanic membranes pearly vasquez without erythema or effusion bilaterally. EYES: Pupils equal round and reactive to light and accommodation. Extraocular movements intact. MOUTH: Mucous membranes somewhat dry. Tonsils are not enlarged. Pharynx without erythema or exudate. NECK: Supple without nuchal rigidity. No lymphadenopathy. HEART: Regular rate and rhythm without murmurs gallops or rubs. LUNGS: Clear to auscultation bilaterally without wheezes, rales or rhonchi. ABDOMEN: Positive bowel sounds x 4. Soft, mild generalized tenderness to palpation. No guarding or rebound tenderness. MUSCULOSKELETAL: Tenderness to palpation over the right clavicle. No tenderness over the shoulder or humerus. EXTREMITIES: No pitting edema of the lower extremities. NEURO: Patient was alert and oriented to person place and time. Course Consultations Consultation #1: Dr. Delmis Connor [facility] hospitalist Administered Medications Discontinued Medications Acetaminophen (Tylenol) 650 mg PO Q4H JOSE Stop: 09/23/19 04:28 Last Admin: 08/25/19 12:07 Dose: Not Given Documented by: [id number] Admin: 08/25/19 09:26 Dose: 650 mg Documented by: [id number] Admin: 08/25/19 04:51 Dose: 650 mg Documented by: [id number] Admin: 08/25/19 00:44 Dose: 650 mg Documented by: [id number] Admin: 08/24/19 21:25 Dose: 650 mg Documented by: [id number] Admin: 08/24/19 17:44 Dose: 650 mg Documented by: [id number] Admin: 08/24/19 13:57 Dose: 650 mg Documented by: [id number] Admin: 08/24/19 09:04 Dose: 650 mg Documented by: [id number] Admin: 08/24/19 08:51 Dose: Not Given Documented by: [id number] Flecainide Acetate (Tambocor) 50 mg PO Q12H JOSE Stop: 09/23/19 08:59 Last Admin: 08/25/19 09:23 Dose: 50 mg Documented by: [id number] Admin: 08/24/19 21:24 Dose: 50 mg Documented by: [id number] Admin: 08/24/19 09:00 Dose: 50 mg Documented by: [id number] Heparin Sodium (Porcine) (Heparin Sodium (Porcine)) 5,000 units SQ Q12 JOSE Stop: 09/23/19 08:59 Last Admin: 08/25/19 09:22 Dose: 5,000 units Documented by: [id number] Cosigned by: [id number] Admin: 08/24/19 21:22 Dose: 5,000 units Documented by: [id number] Cosigned by: [id number] Admin: 08/24/19 09:05 Dose: 5,000 units Documented by: [id number] Cosigned by: [id number] Sodium Chloride (Nss 1000ml) 1,000 mls @ 999 mls/hr IV .Q1H1M ONE Stop: 08/23/19 22:45 Last Infusion: 08/23/19 23:13 Dose: 0 mls/hr Documented by: [id number] Admin: 08/23/19 22:12 Dose: 999 mls/hr Documented by: [id number] Sodium Chloride (Nss 1000ml) 1,000 mls @ 125 mls/hr IV .Q8H JOSE Stop: 08/24/19 12:28 Last Infusion: 08/24/19 16:39 Dose: 0 mls/hr Documented by: [id number] Admin: 08/24/19 09:01 Dose: 125 mls/hr Documented by: [id number] Sodium Chloride (Nss 1000ml) 1,000 mls @ 125 mls/hr IV .Q8H JOSE Stop: 08/25/19 02:44 Last Infusion: 08/25/19 09:23 Dose: 0 mls/hr Documented by: [id number] Admin: 08/25/19 00:42 Dose: 125 mls/hr Documented by: [id number] Infusion: 08/25/19 00:41 Dose: 125 mls/hr Documented by: [id number] Admin: 08/24/19 16:41 Dose: 125 mls/hr Documented by: [id number] Ioversol (Optiray 320 100ml) 100 ml IV ONCE PRN PRN Reason: Interaction Checking Stop: 08/27/19 23:57 Last Admin: 08/23/19 23:58 Dose: 90 ml Documented by: [id number] Metoprolol Succinate (Toprol Xl) 25 mg PO DAILY JOSE Stop: 09/23/19 08:59 Last Admin: 08/25/19 09:22 Dose: 25 mg Documented by: [id number] Admin: 08/24/19 09:00 Dose: 25 mg Documented by: [id number] Morphine Sulfate (Morphine Sulfate) 2 mg IV NOW STA Stop: 08/23/19 23:01 Last Admin: 08/23/19 23:31 Dose: 2 mg Documented by: [id number] Multivitamins (Multivitamin Tab) 1 tab PO DAILY JOSE Stop: 09/23/19 08:59 Last Admin: 08/25/19 09:22 Dose: 1 tab Documented by: [id number] Admin: 08/24/19 09:00 Dose: 1 tab Documented by: [id number] Ondansetron HCl (Zofran) 4 mg IV NOW STA Stop: 08/23/19 21:46 Last Admin: 08/23/19 22:12 Dose: 4 mg Documented by: [id number] Vitamin D (Vitamin D3) 1,000 units PO DAILY JOSE Stop: 09/23/19 08:59 Last Admin: 08/25/19 09:22 Dose: 1,000 units Documented by: [id number] Admin: 08/24/19 09:01 Dose: 1,000 units Documented by: [id number] Medical Decision Making Differential Diagnosis Infection, dehydration, metabolic abnormality, hypo/hyperglycemia, electrolyte disturbance, anemia, hypoxia, cardiac sources, intracerebral event, toxicologic, neurologic, as well as other pathologies. Home Medications Current Medication List: was personally reviewed by me Laboratory Data Attestation: I reviewed the patient's lab results. Result diagrams: 08/23/19 22:05 08/25/19 05:19 Lab Results 08/23/19 08/23/19 08/24/19 Range/Units 22:05 22:05 00:15 WBC 6.61 (4.8-10.8) K/uL RBC 4.66 (4.2-5.4) M/uL Hgb 14.0 (12.0-16.0) g/dL Hct 42.1 (37-47) % MCV 90.3 (80-100) fL MCH 30.0 (25-34) pg MCHC 33.3 (32-36) g/dL RDW Std Deviation 44.3 (36.4-46.3) fL RDW Coeff of Katarina 13.4 (11.5-14.5) % Plt Count 177 (130-400) K/uL MPV 10.2 (7.4-10.4) fL Immature Gran % (Auto) 0.3 % Neut % (Auto) 84.4 % Lymph % (Auto) 7.7 % Armstrong % (Auto) 7.4 % Eos % (Auto) 0.0 % Baso % (Auto) 0.2 % Neut # (Auto) 5.58 (1.4-6.5) K/uL Lymph # (Auto) 0.51 L (1.2-3.4) K/uL Armstrong # (Auto) 0.49 (0.11-0.59) K/uL Eos # (Auto) 0.00 (0-0.5) K/uL Baso # (Auto) 0.01 (0-0.2) K/uL Immature Gran # (Auto) 0.02 (0.00-0.02) K/uL Sodium 128 L (136-145) mmol/L Potassium 3.5 (3.5-5.1) mmol/L Chloride 97 L (98-107) mmol/L Carbon Dioxide 22 (21-32) mmol/L Anion Gap 9.0 (3-11) BUN 8 (7-18) mg/dl Creatinine 0.83 (0.6-1.2) mg/dl Est Cr Clr Drug Dosing 66.6 ml/min Est GFR ( Amer) 79.4 Est GFR (Non-Af Amer) 68.5 BUN/Creatinine Ratio 9.7 L (10-20) Glucose 119 H (70-99) mg/dl Calcium 8.3 L (8.5-10.1) mg/dl Total Bilirubin 0.5 (0.2-1) mg/dl AST 40 H (15-37) U/L ALT 32 (12-78) U/L Alkaline Phosphatase 60 (45-117) U/L Troponin I < 0.015 (0-0.045) ng/ml Total Protein 6.8 (6.4-8.2) gm/dl Albumin 3.1 L (3.4-5.0) gm/dl Globulin 3.7 (2.5-4.0) gm/dl Albumin/Globulin Ratio 0.8 L (0.9-2) Lipase 77 (73-393) U/L Specimen Hemolysis Urine Color Yellow Urine Appearance Clear (Clear) Urine pH 6.0 (4.5-7.5) Ur Specific [place] 1.023 (1.000-1.030) Urine Protein 1+ H (Negative) Urine Glucose (UA) Negative (Negative) Urine Ketones 2+ H (Negative) Urine Blood 1+ H (Negative) Urine Nitrite Negative (Negative) Urine Bilirubin Negative (Negative) Urine Urobilinogen Negative (Negative) Ur Leukocyte Esterase 1+ H (Negative) Urine WBC (Auto) 10-30 H (0-5) /hpf Urine RBC (Auto) 5-10 H (0-4) /hpf U Hyaline Cast (Auto) 0 (0-5) /lpf U Epithel Cells (Auto) 20-30 H (0-5) /lpf Urine Bacteria (Auto) Negative (Negative) Imaging Data Attestation: I personally reviewed and interpreted this imaging study as follows: My Impression: RIGHT CLAVICLE: Displaced midshaft clavicle fracture. CHEST: Clavicle fracture noted. No pneumothorax or pneumonia. Radiologist's Impression: CT ABDOMEN & PELVIS With Contrast: The colon is underdistended and not well assessed. Correlate clinically there is any concern for colitis. Nonobstructive bowel gas pattern. Appendix not identified. No radiodense gallstones or pancreatitis. Small low-attenuation focus in the liver. Right hip prosthesis Old rib fractures. Mild basilar atelectasis CT HEAD: No acute intracranial process. Involutional changes with small vessel disease Old lacunar infarct in the left basal ganglia Radiologist: Dora Garcia M.D. ECG Data Attestation: I personally reviewed and interpreted this ECG as follows: Indication: + syncope Rate (beats per minute): 72 Rhythm: + normal sinus ECG Intervals/blocks: + Left bundle branch block (incomplete) ECG ST segments: + Nonspecific ST abnormalities MDM Narrative The patient is a 74-year-old female who presents today complaining of right shoulder pain after a syncopal episode. Patient has had diarrhea for several days. I do suspect she is dehydrated. Labs revealed a hyponatremia with sodium of 128. Patient was given 1 L of IV normal saline. She did sustain a right clavicle fracture. She was placed in an arm sling. Given patient's syncopal episode and confusion afterward, I do feel she would benefit from evaluation by the hospitalist. Patient was evaluated by the hospitalist service for further care. Attending Attestation: I Isidro Shaw MD independently saw and evaluated this patient and agree with history and physical is otherwise documented by the physician assistant athletic trainer. See their note for full details. Patient resting in bed with R clavicular pain. In no acute distress. Provided with water per her request. Benign abdomen. Syncope likely 2/2 hypovolemia from diarrhea. Given injury and weakness, further eval by hospitalist overnight. Impression & Plan Episode of syncope, Hyponatremia, Clavicle fracture, Diarrhea Discharge Plan Visit Data *Final* Discharge Date/Time: 08/24/19 16:08 Chief Complaint: Syncope Stated Complaint: SYNCOPE ED Provider: Isidro Shaw ED Midlevel Provider: Azul Buenrostro Discharge Problem: Episode of syncope, Hyponatremia, Clavicle fracture, Diarrhea Patient Disposition: Admitted As Inpatient Discharge Instructions Interventions: ED Discharge Assessment Last Done: 08/24/19 16:08
== END 2019-08-25 16:07 | disposition home or self-care (01) | DRG 184 ==
LOC: ED 20:50 → EDINP 08-24 02:48 → SUATTDRO 08-24 02:48 → 2N 08-24 16:08